=== PATIENT | female | born 1965 | race Caucasian/White ===

== ENCOUNTER 2021-02-15 06:34 | Day surgery (SDC) | payer OTHER ==
[~2021-02-15] VITALS: Ht 173 cm; Wt 70.3 kg
[~2021-02-15 06:34] MED LIST: DICLOFENAC SODI75 MG PO
[2021-02-15] MEDS ORDERED: ASPIRIN81 MG PO (11:54)
[2021-02-15] MEDS ORDERED: FEOSOL325 MG PO (11:54)
--- NOTE | 2021-02-15 15:38 | NUR ---
PT ELECTIVE SX; NO NEEDS AT THIS TIME
[2021-02-16 05:39] LABS: BASOPHIL 0.1 % (0-2); EOSINOPHIL 0 % (0-5); HCT 27.4 % (37.0-47.0); HGB 8.9 g/dl (12.5-16.0); LYMPHOCYTE 16.7 % (15-48); MCH 28.7 pg (25.0-31.0); MCHC 32.5 g/dL (32.0-36.0); MCV 88.4 fL (78.0-100.0); MONOCYTE 9.4 % (0-12); MPV 9.7 fL (6.0-9.5); NEUTROPHIL 73.3 % (41-80); PLT 214 K/uL (150-400); RDW 12.5 % (11.5-14.0); WBC 11.1 K/uL (4.0-10.5)
[2021-02-16 05:59] LABS: BUN/CREAT RATIO (CALC) 27.7 RATIO; CREATININE 0.47 mg/dL (0.51-0.95); POTASSIUM 3.8 mmol/L (3.5-5.1)
[2021-02-16 06:29] LABS: BAND 2 % (0-10); LYMPHOCYTE(M) 18 % (15-48); MONOCYTE(M) 9 % (0-12); NEUTROPHILS(M) 69 % (41-80); TOTAL CELL COUNT 100; VARIANT LYMPHOCYTE 2
[2021-02-16 06:30] LABS: HYPERSEGMENTED NEUTROPHILS PRESENT; PLATELET ESTIMATE NORMAL
[2021-02-16 06:31] LABS: PLATELET MORPHOLOGY NORMAL
[2021-02-16] MEDS ORDERED: ZOFRAN4 M1 PO (08:45)
== END 2021-02-16 10:46 | disposition home or self-care (01) ==
LOC: FAS 06:34 → FOFB 08:57 → FAS 02-16 10:46
PROVIDERS: Orthopaedic Surgery
DX: M19.011 Primary osteoarthritis, right shoulder (principal); K21.9 Gastro-esophageal reflux disease without esophagitis; R11.2 Nausea with vomiting, unspecified; Z79.899 Other long term (current) drug therapy
CPT/HCPCS: 36415; 73020; 80048; 86850; 86900; 86901; 94010; 97162; 97166; 97530-GP; 97535; C1713; C1776; J0171; J0697; J0735; J1100; J1170; J1885; J2250; J2270; J2405; J2704; J2795; J7120

== ENCOUNTER → 2021-04-20 | Day surgery (SDC) | payer OTHER ==
[~2021-04-20] VITALS: Ht 173 cm; Wt 70.3 kg
[~2021-04-20] MED LIST changes: +ASPIRIN81 MG PO; +FEOSOL325 MG PO; +ZOFRAN4 M1 PO
== END | disposition home or self-care (01) ==
LOC: FAS 06:01
DX: M75.01 Adhesive capsulitis of right shoulder (principal); Z96.611 Presence of right artificial shoulder joint
CPT/HCPCS: 97162; 97530-GP; J2250; J2704; J2795; J3010; J7120